=== PATIENT | male | born 1970 | race African-American/Black ===

== ENCOUNTER 2017-06-26 14:18 | Inpatient (IN) ==
[2017-06-26 14:52] LABS: INR 1.2; PT Patient Result 12.8 SECS
[2017-06-26 15:07] LABS: Troponin I Only 0.703 NG/ML (0.00-0.045)
[2017-06-26] MEDS ORDERED: ENOXAPARIN 80 MG/0.8 ML SYRINGE SUBCUT SCH (16:00)
[2017-06-26] MEDS ORDERED: ENOXAPARIN 80 MG/0.8 ML SYRINGE SUBCUT STA (16:00)
[2017-06-26 18:24] LABS: Basophils # 0.1 10*3/uL (0.0-0.2); Basophils % 1.1 % (0.0-0.8); Eosinophils # 0.1 10*3/uL (0.0-0.87); Eosinophils % 0.6 % (0.00-10.9); Hematocrit 44.2 VOL% (42.0-52.0); Hemoglobin 14.5 GM/DL (14.0-18.0); Immature Granulocytes % 0.5 %; Immature Granulocytes Absolute 0.06 #; Lymphocytes # 1.9 10*3/uL (1.4-4.0); Lymphocytes % 16.6 % (21.2-54.2); Mean Corpuscular HGB Conc 32.8 GM/DL (32-36); Mean Corpuscular Hemoglobin 30 PG (27-34); Mean Corpuscular Volume 91.9 FL (87-102); Mean Platelet Volume 10.5 FL (9.6-12.0); Monocytes # 0.5 10*3/uL (0.11-0.8); Monocytes % 4.5 % (1.7-12.7); Neutrophils # 8.6 10*3/uL (1.4-7.4); Neutrophils % 76.7 % (38.7-73.9); Platelet Count 564 T/CUMM (130-400); Red Blood Count 4.81 MC/CUMM (3.8-5.5); Red Cell Distribution Width 13.2 % (9.3-17.3); White Blood Count 11.2 T/CUMM (4-12)
[2017-06-26 18:53] LABS: Risk Ratio 6.64; VLDL CHOLESTEROL 17.8 MG/DL
[2017-06-26 19:01] LABS: Albumin 3.6 G/DL (3.4-5.0); Bilirubin,Direct 0.77 MG/DL (0.0-0.20); Bilirubin,Indirect 3.2 MG/DL (0.0-1.0); Calcium 9.2 MG/DL (8.5-10.1); Ferritin 273.2 ng/ml (26-388); Free T4 (Free Thyroxine) 1.84 NG/DL (0.76-1.46); Magnesium 2.1 MG/DL (1.8-2.4); Osmolality,Calculated 282.4 MOS/KG (273-304); Potassium 4.1 MMOL/L (3.5-5.1); Thyroid Stimulating Hormone 1.77 uIU/ml (0.358-3.74)
[2017-06-26 19:27] LABS: Sedimentation Rate-Westergren 11 MM/HR (0-15)
[2017-06-26] MEDS ORDERED: HYDROcodone/CHLORPHENIRAMINE ER 5 ML UDCUP PO PRN (19:36)
[2017-06-26 19:45] LABS: Hepatitis A Ab IgM Quant 0.11 Index; Hepatitis A Ab IgM Result Negative (Negative); Hepatitis B Core IgM Quant 0.13 Index; Hepatitis B Core IgM Result Negative (Negative); Hepatitis B Surface Ag Quant 0.19 Index; Hepatitis B Surface Ag Result Negative (Negative); Hepatitis C Virus Ab Quant 0.13 Index; Hepatitis C Virus Ab Result Negative (Negative)
[2017-06-26] MEDS: MAGNESIUM OXIDE 400 MG TABLET PO SCH (21:01)
[2017-06-26] MEDS: POTASSIUM CHLORIDE 20 MEQ TABLET PO SCH (21:02)
[2017-06-26] MEDS: CARVEDILOL 3.125 MG TABLET PO SCH (21:02)
[2017-06-26] MEDS: FUROSEMIDE 40 MG/4 ML VIAL IV SCH (21:05)
[2017-06-26] MEDS: ONDANSETRON 4 MG/2 ML VIAL IV PRN (22:22)
[2017-06-27] MEDS: ONDANSETRON 4 MG/2 ML VIAL IV PRN ×2 (05:19→21:41)
[2017-06-27 05:50] LABS: Basophils # 0.1 10*3/uL (0.0-0.2); Basophils % 1.1 % (0.0-0.8); Eosinophils # 0.2 10*3/uL (0.0-0.87); Eosinophils % 1.5 % (0.00-10.9); Hemoglobin 12.8 GM/DL (14.0-18.0); Immature Granulocytes % 0.4 %; Immature Granulocytes Absolute 0.04 #; Lymphocytes # 2.3 10*3/uL (1.4-4.0); Lymphocytes % 22.9 % (21.2-54.2); Mean Corpuscular HGB Conc 32.8 GM/DL (32-36); Mean Corpuscular Hemoglobin 30 PG (27-34); Mean Corpuscular Volume 91.5 FL (87-102); Mean Platelet Volume 10.6 FL (9.6-12.0); Monocytes # 0.6 10*3/uL (0.11-0.8); Monocytes % 6.1 % (1.7-12.7); Neutrophils # 6.8 10*3/uL (1.4-7.4); Platelet Count 511 T/CUMM (130-400); Red Blood Count 4.26 MC/CUMM (3.8-5.5); Red Cell Distribution Width 13.3 % (9.3-17.3); White Blood Count 9.9 T/CUMM (4-12)
[2017-06-27 06:17] LABS: Magnesium 2.2 MG/DL (1.8-2.4); Osmolality,Calculated 286.1 MOS/KG (273-304); Potassium 4.4 MMOL/L (3.5-5.1)
[2017-06-27] MEDS ORDERED: FUROSEMIDE 40 MG/4 ML VIAL IV SCH (08:00)
[2017-06-27] MEDS: FUROSEMIDE 40 MG/4 ML VIAL IV SCH ×2 (08:24→16:08)
[2017-06-27] MEDS: MAGNESIUM OXIDE 400 MG TABLET PO SCH ×2 (08:24→21:43)
[2017-06-27] MEDS: POTASSIUM CHLORIDE 20 MEQ TABLET PO SCH ×2 (08:24→21:43)
[2017-06-27] MEDS: CARVEDILOL 3.125 MG TABLET PO SCH ×2 (08:24→21:43)
[2017-06-27] MEDS: SPIRONOLACTONE 25 MG TABLET PO SCH (08:24)
[2017-06-27] MEDS: ASPIRIN EC 81 MG TABLET PO SCH (08:24)
[2017-06-27] MEDS ORDERED: ASPIRIN CHEW 81 MG TABLET PO SCH (09:00)
[2017-06-27] MEDS: LEVOFLOXACIN INJ 500 MG in PREMIX 1 EACH IV SCH (11:25)
[2017-06-27] MEDS: metroNIDAZOLE INJ 500 MG in PREMIX 1 EACH IV SCH ×2 (12:25→21:44)
[2017-06-27 15:46] LABS: % Iron Saturation 11.2 % (18-50); Ferritin 232.4 ng/ml (26-388); Total Protein 6.1 G/DL (6.4-8.3)
[2017-06-28] MEDS ORDERED: BISACODYL 10 MG SUPP RECTAL PRN (00:15)
[2017-06-28 05:33] LABS: Albumin 2.9 G/DL (3.4-5.0); Bilirubin,Direct 0.68 MG/DL (0.0-0.20); Bilirubin,Total 3.7 MG/DL (0.2-1.0)
[2017-06-28] MEDS: metroNIDAZOLE INJ 500 MG in PREMIX 1 EACH IV SCH ×3 (05:45→21:18)
[2017-06-28 08:07] LABS: Albumin (SPE) 3.5 G/DL (3.2-5.3); Albumin (SPE) Rel % 56.4 %; Alpha 1 (SPE) 0.3 G/DL (0.1-0.4); Alpha 1 (SPE) Rel % 4.5 %; Alpha 2 (SPE) 0.5 G/DL (0.4-1.0); Alpha 2 (SPE) Rel % 8.7 %; Beta (SPE) 0.8 G/DL (0.5-1.1); Beta (SPE) Rel % 13.3 %; Gamma (SPE) Rel % 17.1 %; Total Protein (Chem) 6.1 G/DL (6.4-8.3)
[2017-06-28 08:59] LABS: Basophils # 0.1 10*3/uL (0.0-0.2); Eosinophils # 0.2 10*3/uL (0.0-0.87); Eosinophils % 1.6 % (0.00-10.9); Hematocrit 40.5 VOL% (42.0-52.0); Hemoglobin 13.3 GM/DL (14.0-18.0); Immature Granulocytes % 0.5 %; Immature Granulocytes Absolute 0.05 #; Lymphocytes # 2.1 10*3/uL (1.4-4.0); Lymphocytes % 21.2 % (21.2-54.2); Mean Corpuscular HGB Conc 32.8 GM/DL (32-36); Mean Corpuscular Hemoglobin 30 PG (27-34); Mean Corpuscular Volume 91.4 FL (87-102); Mean Platelet Volume 10.1 FL (9.6-12.0); Monocytes # 0.4 10*3/uL (0.11-0.8); Neutrophils # 7.2 10*3/uL (1.4-7.4); Neutrophils % 71.7 % (38.7-73.9); Platelet Count 491 T/CUMM (130-400); Red Blood Count 4.43 MC/CUMM (3.8-5.5); Red Cell Distribution Width 13.3 % (9.3-17.3); White Blood Count 10.1 T/CUMM (4-12)
[2017-06-28 09:35] LABS: Calcium 8.9 MG/DL (8.5-10.1); Magnesium 2.2 MG/DL (1.8-2.4); Osmolality,Calculated 286.4 MOS/KG (273-304); Potassium 4.5 MMOL/L (3.5-5.1)
[2017-06-28] MEDS: CARVEDILOL 3.125 MG TABLET PO SCH ×2 (10:41→21:17)
[2017-06-28] MEDS: POTASSIUM CHLORIDE 20 MEQ TABLET PO SCH ×2 (10:41→21:17)
[2017-06-28] MEDS: SPIRONOLACTONE 25 MG TABLET PO SCH (10:41)
[2017-06-28] MEDS: ASPIRIN EC 81 MG TABLET PO SCH (10:41)
[2017-06-28] MEDS: MAGNESIUM OXIDE 400 MG TABLET PO SCH ×2 (10:42→21:17)
[2017-06-28] MEDS: FUROSEMIDE 40 MG/4 ML VIAL IV SCH ×2 (10:44→19:46)
[2017-06-28] MEDS: LEVOFLOXACIN INJ 500 MG in PREMIX 1 EACH IV SCH (10:49)
[2017-06-28] MEDS: ONDANSETRON 4 MG/2 ML VIAL IV PRN (15:51)
[2017-06-29 06:32] LABS: Basophils # 0.1 10*3/uL (0.0-0.2); Basophils % 1.1 % (0.0-0.8); Eosinophils # 0.3 10*3/uL (0.0-0.87); Eosinophils % 2.5 % (0.00-10.9); Hemoglobin 13.7 GM/DL (14.0-18.0); Immature Granulocytes % 0.3 %; Immature Granulocytes Absolute 0.03 #; Lymphocytes # 2.7 10*3/uL (1.4-4.0); Lymphocytes % 24.3 % (21.2-54.2); Mean Corpuscular HGB Conc 32.6 GM/DL (32-36); Mean Corpuscular Hemoglobin 30 PG (27-34); Mean Corpuscular Volume 92.3 FL (87-102); Mean Platelet Volume 10.9 FL (9.6-12.0); Monocytes # 0.8 10*3/uL (0.11-0.8); Monocytes % 6.8 % (1.7-12.7); Neutrophils # 7.2 10*3/uL (1.4-7.4); Platelet Count 532 T/CUMM (130-400); Red Blood Count 4.55 MC/CUMM (3.8-5.5); Red Cell Distribution Width 13.3 % (9.3-17.3); White Blood Count 11.1 T/CUMM (4-12)
[2017-06-29] MEDS: metroNIDAZOLE INJ 500 MG in PREMIX 1 EACH IV SCH (06:48)
[2017-06-29 06:56] LABS: Calcium 9.2 MG/DL (8.5-10.1); Magnesium 2.3 MG/DL (1.8-2.4); Osmolality,Calculated 285.4 MOS/KG (273-304); Potassium 4.8 MMOL/L (3.5-5.1)
[2017-06-29 07:00] LABS: Albumin 3.2 G/DL (3.4-5.0); Bilirubin,Direct 0.74 MG/DL (0.0-0.20); Bilirubin,Indirect 3.5 MG/DL (0.0-1.0); Bilirubin,Total 4.2 MG/DL (0.2-1.0); Total Protein 6.5 G/DL (6.4-8.3)
[2017-06-29] MEDS: ASPIRIN EC 81 MG TABLET PO SCH (09:49)
[2017-06-29] MEDS: MAGNESIUM OXIDE 400 MG TABLET PO SCH ×2 (09:49→20:46)
[2017-06-29] MEDS: SPIRONOLACTONE 25 MG TABLET PO SCH (09:49)
[2017-06-29] MEDS: CARVEDILOL 3.125 MG TABLET PO SCH ×2 (09:49→20:46)
[2017-06-29] MEDS: POTASSIUM CHLORIDE 20 MEQ TABLET PO SCH (09:49)
[2017-06-29] MEDS: FUROSEMIDE 40 MG/4 ML VIAL IV SCH ×2 (09:49→15:41)
[2017-06-29] MEDS: LEVOFLOXACIN INJ 500 MG in PREMIX 1 EACH IV SCH (10:55)
[2017-06-29] MEDS: ONDANSETRON 4 MG/2 ML VIAL IV PRN (12:53)
[2017-06-30 05:19] LABS: Basophils # 0.1 10*3/uL (0.0-0.2); Basophils % 1.1 % (0.0-0.8); Eosinophils # 0.5 10*3/uL (0.0-0.87); Eosinophils % 4.3 % (0.00-10.9); Hematocrit 38.6 VOL% (42.0-52.0); Hemoglobin 12.6 GM/DL (14.0-18.0); Immature Granulocytes % 0.5 %; Immature Granulocytes Absolute 0.05 #; Lymphocytes # 2.5 10*3/uL (1.4-4.0); Lymphocytes % 24.1 % (21.2-54.2); Mean Corpuscular HGB Conc 32.6 GM/DL (32-36); Mean Corpuscular Hemoglobin 30 PG (27-34); Mean Corpuscular Volume 92.3 FL (87-102); Mean Platelet Volume 10.5 FL (9.6-12.0); Monocytes # 0.6 10*3/uL (0.11-0.8); Monocytes % 6.1 % (1.7-12.7); Neutrophils # 6.8 10*3/uL (1.4-7.4); Neutrophils % 63.9 % (38.7-73.9); Platelet Count 479 T/CUMM (130-400); Red Blood Count 4.18 MC/CUMM (3.8-5.5); Red Cell Distribution Width 13.3 % (9.3-17.3); White Blood Count 10.6 T/CUMM (4-12)
[2017-06-30 05:45] LABS: Calcium 8.8 MG/DL (8.5-10.1); Magnesium 2.5 MG/DL (1.8-2.4); Osmolality,Calculated 287.3 MOS/KG (273-304); Potassium 4.3 MMOL/L (3.5-5.1)
[2017-06-30] MEDS: MAGNESIUM OXIDE 400 MG TABLET PO SCH ×2 (10:44→21:47)
[2017-06-30] MEDS: ASPIRIN EC 81 MG TABLET PO SCH (10:44)
[2017-06-30] MEDS: SPIRONOLACTONE 25 MG TABLET PO SCH (10:44)
[2017-06-30] MEDS: CARVEDILOL 3.125 MG TABLET PO SCH ×2 (10:44→21:47)
[2017-06-30 12:31] LABS: Smooth Muscle Antibody Negative (Negative)
[2017-06-30] MEDS ORDERED: LIDOCAINE 2% 5 ML VIAL ONE (12:32)
[2017-06-30] MEDS ORDERED: ETOMIDATE 20 MG/10 ML VIAL IV ONE (12:32)
[2017-06-30 13:56] LABS: Mitochondrial Antibody (M2) <0.1 U
[2017-06-30] MEDS: FUROSEMIDE 40 MG/4 ML VIAL IV SCH ×3 (14:14→16:55)
[2017-06-30] MEDS ORDERED: ZALEPLON 5 MG CAPSULE PO PRN (14:47)
[2017-06-30] MEDS ORDERED: ACETAMINOPHEN 325 MG TABLET PO PRN (15:06)
[2017-06-30] MEDS ORDERED: MAGNESIUM HYDROXIDE SUSP 30 ML UDCUP PO PRN (15:07)
[2017-06-30] MEDS ORDERED: DOCUSATE SODIUM 100 MG CAPSULE PO PRN (15:07)
[2017-06-30] MEDS: PANTOPRAZOLE 20 MG TABLET PO SCH ×2 (16:16→16:52)
[2017-07-01 05:41] LABS: Basophils # 0.1 10*3/uL (0.0-0.2); Basophils % 1.3 % (0.0-0.8); Eosinophils # 0.5 10*3/uL (0.0-0.87); Eosinophils % 5.3 % (0.00-10.9); Hematocrit 36.7 VOL% (42.0-52.0); Hemoglobin 12.3 GM/DL (14.0-18.0); Immature Granulocytes % 0.4 %; Immature Granulocytes Absolute 0.04 #; Lymphocytes # 1.9 10*3/uL (1.4-4.0); Lymphocytes % 20.4 % (21.2-54.2); Mean Corpuscular HGB Conc 33.5 GM/DL (32-36); Mean Corpuscular Hemoglobin 31 PG (27-34); Mean Platelet Volume 10.9 FL (9.6-12.0); Monocytes # 0.8 10*3/uL (0.11-0.8); Monocytes % 7.9 % (1.7-12.7); Neutrophils # 6.1 10*3/uL (1.4-7.4); Neutrophils % 64.7 % (38.7-73.9); Platelet Count 413 T/CUMM (130-400); Red Blood Count 3.99 MC/CUMM (3.8-5.5); Red Cell Distribution Width 13.2 % (9.3-17.3); White Blood Count 9.5 T/CUMM (4-12)
[2017-07-01 06:06] LABS: Calcium 8.7 MG/DL (8.5-10.1); Magnesium 2.3 MG/DL (1.8-2.4); Osmolality,Calculated 284.4 MOS/KG (273-304); Potassium 4.3 MMOL/L (3.5-5.1)
[2017-07-01 06:12] LABS: Albumin 2.9 G/DL (3.4-5.0); Bilirubin,Direct 0.63 MG/DL (0.0-0.20); Bilirubin,Indirect 3.6 MG/DL (0.0-1.0); Bilirubin,Total 4.2 MG/DL (0.2-1.0); Total Protein 5.6 G/DL (6.4-8.3)
[2017-07-01] MEDS: SPIRONOLACTONE 25 MG TABLET PO SCH (08:23)
[2017-07-01] MEDS: FUROSEMIDE 40 MG/4 ML VIAL IV SCH ×2 (08:23→15:55)
[2017-07-01] MEDS: ASPIRIN EC 81 MG TABLET PO SCH (08:23)
[2017-07-01] MEDS: CARVEDILOL 3.125 MG TABLET PO SCH ×2 (08:23→21:40)
[2017-07-01] MEDS: PANTOPRAZOLE 20 MG TABLET PO SCH (08:23)
[2017-07-01] MEDS: MAGNESIUM OXIDE 400 MG TABLET PO SCH ×2 (08:27→21:40)
[2017-07-02] MEDS: FUROSEMIDE 40 MG/4 ML VIAL IV SCH ×2 (09:31→16:16)
[2017-07-02] MEDS: MAGNESIUM OXIDE 400 MG TABLET PO SCH ×2 (09:32→18:41)
[2017-07-02] MEDS: PANTOPRAZOLE 20 MG TABLET PO SCH (09:32)
[2017-07-02] MEDS: SPIRONOLACTONE 25 MG TABLET PO SCH (09:32)
[2017-07-02] MEDS: ASPIRIN EC 81 MG TABLET PO SCH (09:32)
[2017-07-02] MEDS: CARVEDILOL 3.125 MG TABLET PO SCH ×2 (09:32→18:41)
[2017-07-02 16:57] VITALS: BP 102/60
== END 2017-07-02 21:16 | disposition home or self-care (01) | DRG 280 ==
LOC: N.ED 14:18 → N.EDINP 15:52 → N.TELES 16:45
PROVIDERS: ADMIT Internal Medicine Cardiovascular Disease; ATTEND Internal Medicine Cardiovascular Disease

== ENCOUNTER 2017-09-26 15:40 | Inpatient (IN) ==
[2017-09-26] MEDS ORDERED: ALBUTEROL/IPRATROPIUM 3 ML NEB RESP TX STA ×2 (17:47→22:34)
[2017-09-26] MEDS ORDERED: FUROSEMIDE 100 MG/10 ML VIAL IV STA (17:47)
[2017-09-26] MEDS ORDERED: cefTRIAXone 1,000 MG in SODIUM CHLORIDE 0.9% 100 ML IV STA (17:47)
[2017-09-26] MEDS ORDERED: ONDANSETRON 4 MG/2 ML VIAL IV STA (17:47)
[2017-09-26 18:44] LABS: Basophils # 0.1 10*3/uL (0.0-0.2); Basophils % 1.3 % (0.0-0.8); Eosinophils # 0.2 10*3/uL (0.0-0.87); Eosinophils % 1.8 % (0.00-10.9); Hematocrit 40.9 VOL% (42.0-52.0); Hemoglobin 13.3 GM/DL (14.0-18.0); Immature Granulocytes % 0.5 %; Immature Granulocytes Absolute 0.05 #; Lymphocytes # 2.1 10*3/uL (1.4-4.0); Lymphocytes % 19.2 % (21.2-54.2); Mean Corpuscular HGB Conc 32.5 GM/DL (32-36); Mean Corpuscular Hemoglobin 31 PG (27-34); Mean Corpuscular Volume 94.5 FL (87-102); Mean Platelet Volume 10.8 FL (9.6-12.0); Monocytes # 0.9 10*3/uL (0.11-0.8); Monocytes % 8.5 % (1.7-12.7); NRBC # 0.03 10*3/uL; Neutrophils # 7.6 10*3/uL (1.4-7.4); Neutrophils % 68.7 % (38.7-73.9); Platelet Count 301 T/CUMM (130-400); Red Blood Count 4.33 MC/CUMM (3.8-5.5)
[2017-09-26 18:51] LABS: INR 1.5; PT Patient Result 15.4 SECS
[2017-09-26 19:12] LABS: Alanine Aminotransferase 92 U/L (16-61); Albumin 3.5 G/DL (3.4-5.0); Alkaline Phosphatase 74 U/L (45-117); Aspartate Amino Transferase 55 U/L (0-37); Blood Urea Nitrogen 24 MG/DL (7-18); Glucose 96 MG/DL (74-106); Magnesium 2.1 MG/DL (1.8-2.4); Osmolality,Calculated 282.4 MOS/KG (273-304); Potassium 3.5 MMOL/L (3.5-5.1); Sodium 140 MMOL/L (136-145); Troponin I Only < 0.015 NG/ML (0.00-0.045)
[2017-09-26] MEDS ORDERED: FUROSEMIDE 40 MG/4 ML VIAL ONE (19:39)
[2017-09-26] MEDS ORDERED: ONDANSETRON 4 MG/2 ML VIAL ONE (19:40)
[2017-09-26] MEDS ORDERED: cefTRIAXone 1,000 MG VIAL ONE (19:40)
[2017-09-26] MEDS ORDERED: FUROSEMIDE 20 MG/2 ML VIAL ONE (19:40)
[2017-09-26 23:47] LABS: Troponin I Only < 0.015 NG/ML (0.00-0.045)
[2017-09-27] MEDS: ENOXAPARIN 40 MG/0.4 ML SYRINGE SUBCUT SCH ×2 (00:14→23:16)
[2017-09-27 00:39] LABS: Hepatitis A Ab IgM Result Negative (Negative); Hepatitis B Core IgM Quant 0.15 Index; Hepatitis B Core IgM Result Negative (Negative); Hepatitis B Surface Ag Quant < 0.10 Index; Hepatitis B Surface Ag Result Negative (Negative); Hepatitis C Virus Ab Quant 0.13 Index; Hepatitis C Virus Ab Result Negative (Negative)
[2017-09-27 04:55] LABS: Basophils # 0.1 10*3/uL (0.0-0.2); Basophils % 1.2 % (0.0-0.8); Eosinophils # 0.1 10*3/uL (0.0-0.87); Eosinophils % 1.1 % (0.00-10.9); Hematocrit 38.8 VOL% (42.0-52.0); Hemoglobin 12.7 GM/DL (14.0-18.0); Immature Granulocytes % 0.5 %; Immature Granulocytes Absolute 0.06 #; Lymphocytes # 1.7 10*3/uL (1.4-4.0); Lymphocytes % 15.5 % (21.2-54.2); Mean Corpuscular HGB Conc 32.7 GM/DL (32-36); Mean Corpuscular Hemoglobin 31 PG (27-34); Mean Corpuscular Volume 93.9 FL (87-102); Mean Platelet Volume 11.3 FL (9.6-12.0); Monocytes # 1.1 10*3/uL (0.11-0.8); Monocytes % 9.9 % (1.7-12.7); NRBC # 0.02 10*3/uL; Neutrophils # 7.9 10*3/uL (1.4-7.4); Neutrophils % 71.8 % (38.7-73.9); Platelet Count 303 T/CUMM (130-400); Red Blood Count 4.13 MC/CUMM (3.8-5.5); Red Cell Distribution Width 15.9 % (9.3-17.3); White Blood Count 10.9 T/CUMM (4-12)
[2017-09-27 05:28] LABS: Troponin I Only < 0.015 NG/ML (0.00-0.045)
[2017-09-27 05:29] LABS: Albumin 3.2 G/DL (3.4-5.0); Bilirubin,Total 7.1 MG/DL (0.2-1.0); Calcium 8.7 MG/DL (8.5-10.1); Osmolality,Calculated 282.4 MOS/KG (273-304); Risk Ratio 7.93; Total Protein 6.6 G/DL (6.4-8.3); VLDL CHOLESTEROL 14.2 MG/DL
[2017-09-27] MEDS ORDERED: ASPIRIN 325 MG TABLET PO SCH (09:00)
[2017-09-27] MEDS: CARVEDILOL 3.125 MG TABLET PO SCH ×2 (09:32→20:26)
[2017-09-27] MEDS: SPIRONOLACTONE 25 MG TABLET PO SCH (09:32)
[2017-09-27] MEDS: FUROSEMIDE 40 MG/4 ML VIAL IV SCH ×2 (09:50→20:27)
[2017-09-27] MEDS: PANTOPRAZOLE 20 MG TABLET PO SCH (10:23)
[2017-09-27] MEDS: LEVOFLOXACIN INJ 500 MG in PREMIX 1 EACH IV SCH (10:24)
[2017-09-27] MEDS: POTASSIUM CHLORIDE 20 MEQ TABLET PO PRN (10:34)
[2017-09-27] MEDS: LISINOPRIL 2.5 MG TABLET PO SCH ×2 (12:04→20:26)
[2017-09-27 13:54] LABS: Apearance,Urine CLEAR (Clear); Bilirubin,Urine Negative (Negative); Blood, Urine Negative (Negative); Glucose,Urine (UA) Negative (Negative); Ketones,Urine Negative (Negative); Nitrite,Urine Negative (Negative); Protein,Urine Negative; RBC,Urine <1 /HPF (0-4); Urine Color Yellow (Yellow); WBC,Urine 1 /HPF (0-6)
[2017-09-27 14:13] LABS: Barbiturates Screen,Urine Negative (Negative); Benzodiazepines Screen,Urine Negative (Negative); Cannabinoid Screen,Urine Negative (Negative); Opiate Screen,Urine Negative (Negative); Phencyclidine Screen,Urine Negative (Negative)
[2017-09-28 05:25] LABS: Basophils # 0.1 10*3/uL (0.0-0.2); Basophils % 0.9 % (0.0-0.8); Eosinophils # 0.3 10*3/uL (0.0-0.87); Eosinophils % 2.8 % (0.00-10.9); Hematocrit 37.9 VOL% (42.0-52.0); Hemoglobin 12.8 GM/DL (14.0-18.0); Immature Granulocytes % 0.2 %; Immature Granulocytes Absolute 0.02 #; Lymphocytes # 2.2 10*3/uL (1.4-4.0); Lymphocytes % 22.3 % (21.2-54.2); Mean Corpuscular HGB Conc 33.8 GM/DL (32-36); Mean Corpuscular Hemoglobin 31 PG (27-34); Mean Corpuscular Volume 91.8 FL (87-102); Mean Platelet Volume 11.1 FL (9.6-12.0); Monocytes # 0.9 10*3/uL (0.11-0.8); Neutrophils # 6.3 10*3/uL (1.4-7.4); Neutrophils % 64.8 % (38.7-73.9); Platelet Count 285 T/CUMM (130-400); Red Blood Count 4.13 MC/CUMM (3.8-5.5); Red Cell Distribution Width 15.7 % (9.3-17.3); White Blood Count 9.7 T/CUMM (4-12)
[2017-09-28 05:55] LABS: Calcium 8.8 MG/DL (8.5-10.1); Magnesium 1.9 MG/DL (1.8-2.4); Potassium 2.8 MMOL/L (3.5-5.1)
[2017-09-28 05:56] LABS: Albumin 3.1 G/DL (3.4-5.0); Calcium 8.8 MG/DL (8.5-10.1); Osmolality,Calculated 276.8 MOS/KG (273-304); Potassium 2.7 MMOL/L (3.5-5.1)
[2017-09-28] MEDS: POTASSIUM CHLORIDE 20 MEQ TABLET PO PRN ×4 (06:05→17:57)
[2017-09-28] MEDS: FUROSEMIDE 40 MG/4 ML VIAL IV SCH ×2 (08:35→20:34)
[2017-09-28] MEDS: PANTOPRAZOLE 20 MG TABLET PO SCH (08:39)
[2017-09-28] MEDS: SPIRONOLACTONE 25 MG TABLET PO SCH (08:41)
[2017-09-28] MEDS: CARVEDILOL 3.125 MG TABLET PO SCH ×2 (08:41→20:33)
[2017-09-28] MEDS: LEVOFLOXACIN INJ 500 MG in PREMIX 1 EACH IV SCH (08:43)
[2017-09-28] MEDS: LISINOPRIL 2.5 MG TABLET PO SCH ×2 (08:51→20:33)
[2017-09-28] MEDS: DOCUSATE SODIUM 100 MG CAPSULE PO SCH ×2 (14:07→20:34)
[2017-09-28] MEDS: POLYETHYLENE GLYCOL POWDER 17 GM PACK PO SCH ×2 (14:08→21:28)
[2017-09-28] MEDS: SENNA 8.6 MG TABLET PO SCH (21:28)
[2017-09-28] MEDS: ENOXAPARIN 40 MG/0.4 ML SYRINGE SUBCUT SCH (21:34)
[2017-09-29 04:58] LABS: Basophils # 0.1 10*3/uL (0.0-0.2); Basophils % 0.9 % (0.0-0.8); Eosinophils # 0.2 10*3/uL (0.0-0.87); Eosinophils % 2.8 % (0.00-10.9); Hematocrit 39.7 VOL% (42.0-52.0); Hemoglobin 12.9 GM/DL (14.0-18.0); Immature Granulocytes % 0.2 %; Immature Granulocytes Absolute 0.02 #; Lymphocytes # 2.3 10*3/uL (1.4-4.0); Lymphocytes % 26.3 % (21.2-54.2); Mean Corpuscular HGB Conc 32.5 GM/DL (32-36); Mean Corpuscular Hemoglobin 31 PG (27-34); Mean Corpuscular Volume 94.1 FL (87-102); Monocytes # 0.6 10*3/uL (0.11-0.8); Neutrophils # 5.4 10*3/uL (1.4-7.4); Neutrophils % 62.8 % (38.7-73.9); Platelet Count 330 T/CUMM (130-400); Red Blood Count 4.22 MC/CUMM (3.8-5.5); Red Cell Distribution Width 15.3 % (9.3-17.3); White Blood Count 8.6 T/CUMM (4-12)
[2017-09-29 05:27] LABS: Calcium 9.2 MG/DL (8.5-10.1); Osmolality,Calculated 270.2 MOS/KG (273-304); Potassium 3.4 MMOL/L (3.5-5.1)
[2017-09-29 05:29] LABS: Albumin 3.5 G/DL (3.4-5.0); Calcium 9.3 MG/DL (8.5-10.1); Osmolality,Calculated 270.2 MOS/KG (273-304); Potassium 3.5 MMOL/L (3.5-5.1)
[2017-09-29] MEDS: POTASSIUM CHLORIDE 20 MEQ TABLET PO SCH (08:57)
[2017-09-29] MEDS: CARVEDILOL 3.125 MG TABLET PO SCH ×2 (08:58→21:04)
[2017-09-29] MEDS: LISINOPRIL 2.5 MG TABLET PO SCH ×2 (08:58→21:04)
[2017-09-29] MEDS: SPIRONOLACTONE 25 MG TABLET PO SCH (08:58)
[2017-09-29] MEDS: DOCUSATE SODIUM 100 MG CAPSULE PO SCH ×2 (08:58→21:04)
[2017-09-29] MEDS: POLYETHYLENE GLYCOL POWDER 17 GM PACK PO SCH ×2 (08:58→21:02)
[2017-09-29] MEDS: PANTOPRAZOLE 20 MG TABLET PO SCH (08:58)
[2017-09-29] MEDS: LEVOFLOXACIN INJ 500 MG in PREMIX 1 EACH IV SCH (08:59)
[2017-09-29] MEDS: FUROSEMIDE 40 MG/4 ML VIAL IV SCH ×2 (08:59→21:05)
[2017-09-29] MEDS: FLUTICASONE 50 MCG NASAL SPRAY 16 GM BOTTLE BOTH NARES SCH (12:41)
[2017-09-29] MEDS: OXYMETAZOLINE 0.05% NASAL SPRAY 15 ML BOTTLE BOTH NARES SCH ×2 (12:41→21:09)
[2017-09-29] MEDS: CETIRIZINE 10 MG TABLET PO SCH (12:41)
[2017-09-29] MEDS: SENNA 8.6 MG TABLET PO SCH (21:04)
[2017-09-30] MEDS: ENOXAPARIN 40 MG/0.4 ML SYRINGE SUBCUT SCH (01:42)
[2017-09-30 06:22] LABS: Basophils # 0.1 10*3/uL (0.0-0.2); Basophils % 1.5 % (0.0-0.8); Eosinophils # 0.3 10*3/uL (0.0-0.87); Eosinophils % 3.4 % (0.00-10.9); Hemoglobin 12.4 GM/DL (14.0-18.0); Immature Granulocytes % 0.4 %; Immature Granulocytes Absolute 0.03 #; Lymphocytes # 1.9 10*3/uL (1.4-4.0); Mean Corpuscular HGB Conc 32.6 GM/DL (32-36); Mean Corpuscular Hemoglobin 30 PG (27-34); Mean Corpuscular Volume 92.2 FL (87-102); Mean Platelet Volume 10.5 FL (9.6-12.0); Monocytes # 0.6 10*3/uL (0.11-0.8); Monocytes % 7.9 % (1.7-12.7); Neutrophils # 4.4 10*3/uL (1.4-7.4); Neutrophils % 60.8 % (38.7-73.9); Platelet Count 310 T/CUMM (130-400); Red Blood Count 4.12 MC/CUMM (3.8-5.5); White Blood Count 7.3 T/CUMM (4-12)
[2017-09-30 07:01] LABS: Calcium 8.9 MG/DL (8.5-10.1); Magnesium 2.1 MG/DL (1.8-2.4); Potassium 3.4 MMOL/L (3.5-5.1)
[2017-09-30] MEDS: OXYMETAZOLINE 0.05% NASAL SPRAY 15 ML BOTTLE BOTH NARES SCH ×2 (09:53→21:28)
[2017-09-30] MEDS: FLUTICASONE 50 MCG NASAL SPRAY 16 GM BOTTLE BOTH NARES SCH (09:53)
[2017-09-30] MEDS: FUROSEMIDE 40 MG/4 ML VIAL IV SCH (09:54)
[2017-09-30] MEDS: DOCUSATE SODIUM 100 MG CAPSULE PO SCH ×2 (09:57→21:28)
[2017-09-30] MEDS: CETIRIZINE 10 MG TABLET PO SCH (09:57)
[2017-09-30] MEDS: CARVEDILOL 3.125 MG TABLET PO SCH ×2 (09:57→21:28)
[2017-09-30] MEDS: PANTOPRAZOLE 20 MG TABLET PO SCH (09:57)
[2017-09-30] MEDS: SPIRONOLACTONE 25 MG TABLET PO SCH (09:57)
[2017-09-30] MEDS: POTASSIUM CHLORIDE 20 MEQ TABLET PO SCH (09:57)
[2017-09-30] MEDS: LISINOPRIL 2.5 MG TABLET PO SCH ×2 (09:57→21:27)
[2017-09-30] MEDS: POLYETHYLENE GLYCOL POWDER 17 GM PACK PO SCH ×2 (09:58→21:27)
[2017-09-30] MEDS: LEVOFLOXACIN INJ 500 MG in PREMIX 1 EACH IV SCH (09:58)
[2017-09-30] MEDS: POTASSIUM CHLORIDE 20 MEQ TABLET PO PRN (11:12)
[2017-09-30] MEDS: FUROSEMIDE 40 MG TABLET PO SCH (15:36)
[2017-10-01] MEDS: ENOXAPARIN 40 MG/0.4 ML SYRINGE SUBCUT SCH (04:46)
[2017-10-01 06:31] LABS: Basophils # 0.1 10*3/uL (0.0-0.2); Basophils % 1.5 % (0.0-0.8); Eosinophils # 0.3 10*3/uL (0.0-0.87); Eosinophils % 3.5 % (0.00-10.9); Hematocrit 38.5 VOL% (42.0-52.0); Hemoglobin 12.7 GM/DL (14.0-18.0); Immature Granulocytes % 0.4 %; Immature Granulocytes Absolute 0.03 #; Lymphocytes # 2.2 10*3/uL (1.4-4.0); Lymphocytes % 29.5 % (21.2-54.2); Mean Corpuscular Hemoglobin 31 PG (27-34); Mean Corpuscular Volume 93.2 FL (87-102); Mean Platelet Volume 10.4 FL (9.6-12.0); Monocytes # 0.5 10*3/uL (0.11-0.8); Neutrophils # 4.3 10*3/uL (1.4-7.4); Neutrophils % 58.1 % (38.7-73.9); Platelet Count 329 T/CUMM (130-400); Red Blood Count 4.13 MC/CUMM (3.8-5.5); Red Cell Distribution Width 14.8 % (9.3-17.3); White Blood Count 7.4 T/CUMM (4-12)
[2017-10-01 06:52] LABS: Calcium 9.1 MG/DL (8.5-10.1); Magnesium 2.2 MG/DL (1.8-2.4); Osmolality,Calculated 273.2 MOS/KG (273-304)
[2017-10-01] MEDS: LISINOPRIL 2.5 MG TABLET PO SCH (09:06)
[2017-10-01] MEDS: SPIRONOLACTONE 25 MG TABLET PO SCH (09:06)
[2017-10-01] MEDS: POTASSIUM CHLORIDE 20 MEQ TABLET PO SCH (09:06)
[2017-10-01] MEDS: FLUTICASONE 50 MCG NASAL SPRAY 16 GM BOTTLE BOTH NARES SCH (09:06)
[2017-10-01] MEDS: OXYMETAZOLINE 0.05% NASAL SPRAY 15 ML BOTTLE BOTH NARES SCH (09:06)
[2017-10-01] MEDS: DOCUSATE SODIUM 100 MG CAPSULE PO SCH (09:06)
[2017-10-01] MEDS: POLYETHYLENE GLYCOL POWDER 17 GM PACK PO SCH (09:06)
[2017-10-01] MEDS: PANTOPRAZOLE 20 MG TABLET PO SCH (09:06)
[2017-10-01] MEDS: CETIRIZINE 10 MG TABLET PO SCH (09:06)
[2017-10-01] MEDS: CARVEDILOL 3.125 MG TABLET PO SCH (09:06)
[2017-10-01] MEDS: FUROSEMIDE 40 MG TABLET PO SCH (09:06)
[2017-10-01] MEDS: LEVOFLOXACIN INJ 500 MG in PREMIX 1 EACH IV SCH (09:17)
[2017-10-01] MEDS ORDERED: CARVEDILOL 3.125 MG TABLET PO SCH (10:25)
[2017-10-01 12:03] VITALS: BP 111/80
[2017-10-01] MEDS ORDERED: CARVEDILOL 6.25 MG TABLET PO SCH (21:00)
== END 2017-10-01 15:12 | disposition home or self-care (01) | DRG 291 ==
LOC: N.ED 15:40 → SUATTDRO 21:11 → N.EDINP 21:11 → N.TELEN 21:33
PROVIDERS: ADMIT Pediatrics; ATTEND Hospitalist

== ENCOUNTER 2017-10-16 20:52 | Inpatient (IN) ==
[2017-10-16 22:34] LABS: Basophils # 0.1 10*3/uL (0.0-0.2); Basophils % 1.1 % (0.0-0.8); Eosinophils # 0.2 10*3/uL (0.0-0.87); Eosinophils % 2.1 % (0.00-10.9); Hematocrit 43.3 VOL% (42.0-52.0); Hemoglobin 13.8 GM/DL (14.0-18.0); Immature Granulocytes % 0.4 %; Immature Granulocytes Absolute 0.04 #; Lymphocytes # 1.6 10*3/uL (1.4-4.0); Lymphocytes % 15.1 % (21.2-54.2); Mean Corpuscular HGB Conc 31.9 GM/DL (32-36); Mean Corpuscular Hemoglobin 31 PG (27-34); Mean Platelet Volume 10.7 FL (9.6-12.0); Monocytes # 0.7 10*3/uL (0.11-0.8); Monocytes % 6.8 % (1.7-12.7); Neutrophils # 7.8 10*3/uL (1.4-7.4); Neutrophils % 74.5 % (38.7-73.9); Platelet Count 313 T/CUMM (130-400); Red Blood Count 4.51 MC/CUMM (3.8-5.5); Red Cell Distribution Width 15.1 % (9.3-17.3); White Blood Count 10.4 T/CUMM (4-12)
[2017-10-17] MEDS ORDERED: FUROSEMIDE 40 MG/4 ML VIAL IV STA (00:02)
[2017-10-17] MEDS ORDERED: FUROSEMIDE 40 MG/4 ML VIAL ONE (00:16)
[2017-10-17 00:41] LABS: Albumin 3.3 G/DL (3.4-5.0); Bilirubin,Total 5.8 MG/DL (0.2-1.0); Osmolality,Calculated 281.5 MOS/KG (273-304); Potassium 3.8 MMOL/L (3.5-5.1); Total Protein 7.3 G/DL (6.4-8.3)
[2017-10-17] MEDS ORDERED: ACETAMINOPHEN 325 MG TABLET PO PRN (03:21)
[2017-10-17] MEDS ORDERED: ONDANSETRON 4 MG/2 ML VIAL IV PRN (03:21)
[2017-10-17] MEDS ORDERED: POLYETHYLENE GLYCOL POWDER 17 GM PACK PO PRN (03:29)
[2017-10-17] MEDS ORDERED: metOLazone 5 MG TABLET PO PRN (03:30)
[2017-10-17] MEDS: LEVOFLOXACIN INJ 750 MG in PREMIX 1 EACH IV SCH (05:38)
[2017-10-17] MEDS: LISINOPRIL 2.5 MG TABLET PO SCH ×2 (08:33→21:05)
[2017-10-17] MEDS: DOCUSATE SODIUM 100 MG CAPSULE PO SCH ×2 (08:33→21:05)
[2017-10-17] MEDS: CARVEDILOL 3.125 MG TABLET PO SCH ×2 (08:33→21:06)
[2017-10-17] MEDS: PANTOPRAZOLE 40 MG TABLET PO SCH (08:33)
[2017-10-17] MEDS: ASPIRIN EC 81 MG TABLET PO SCH (08:33)
[2017-10-17] MEDS: ENOXAPARIN 40 MG/0.4 ML SYRINGE SUBCUT SCH (08:34)
[2017-10-17] MEDS: FUROSEMIDE 40 MG/4 ML VIAL IV SCH ×2 (08:34→16:01)
[2017-10-17] MEDS: MAGNESIUM OXIDE 400 MG TABLET PO SCH ×2 (08:37→21:06)
[2017-10-17] MEDS ORDERED: SPIRONOLACTONE 25 MG TABLET PO SCH (09:00)
[2017-10-18] MEDS: LEVOFLOXACIN INJ 750 MG in PREMIX 1 EACH IV SCH (03:54)
[2017-10-18 04:58] LABS: Basophils # 0.1 10*3/uL (0.0-0.2); Basophils % 0.9 % (0.0-0.8); Eosinophils # 0.2 10*3/uL (0.0-0.87); Eosinophils % 2.5 % (0.00-10.9); Hematocrit 37.4 VOL% (42.0-52.0); Hemoglobin 12.2 GM/DL (14.0-18.0); Immature Granulocytes % 0.2 %; Immature Granulocytes Absolute 0.02 #; Lymphocytes # 1.7 10*3/uL (1.4-4.0); Lymphocytes % 19.7 % (21.2-54.2); Mean Corpuscular HGB Conc 32.6 GM/DL (32-36); Mean Corpuscular Hemoglobin 31 PG (27-34); Mean Corpuscular Volume 94.2 FL (87-102); Mean Platelet Volume 10.7 FL (9.6-12.0); Monocytes # 0.7 10*3/uL (0.11-0.8); Monocytes % 8.3 % (1.7-12.7); Neutrophils # 6.1 10*3/uL (1.4-7.4); Neutrophils % 68.4 % (38.7-73.9); Platelet Count 256 T/CUMM (130-400); Red Blood Count 3.97 MC/CUMM (3.8-5.5); Red Cell Distribution Width 14.9 % (9.3-17.3); White Blood Count 8.8 T/CUMM (4-12)
[2017-10-18 05:24] LABS: Osmolality,Calculated 281.4 MOS/KG (273-304)
[2017-10-18] MEDS ORDERED: diphenhydrAMINE CAP 25 MG CAPSULE PO ONE (06:30)
[2017-10-18] MEDS ORDERED: MAGNESIUM SULF RIDER 2 GM in PREMIX 1 EACH IV PRN (06:30)
[2017-10-18] MEDS ORDERED: POTASSIUM CHLORIDE RIDER 10 MEQ in PREMIX 1 EACH IV PRN (06:30)
[2017-10-18] MEDS ORDERED: DIAZEPAM 5 MG TABLET PO ONE (06:30)
[2017-10-18] MEDS ORDERED: HEPARIN/NACL 0.9% 2 UNITS/ML 0 ML IV ONE (07:02)
[2017-10-18] MEDS: LISINOPRIL 2.5 MG TABLET PO SCH ×2 (08:14→21:31)
[2017-10-18] MEDS: SPIRONOLACTONE 50 MG TABLET PO SCH (08:15)
[2017-10-18] MEDS: ASPIRIN EC 81 MG TABLET PO SCH (08:15)
[2017-10-18] MEDS: DOCUSATE SODIUM 100 MG CAPSULE PO SCH ×2 (08:15→21:31)
[2017-10-18] MEDS: CARVEDILOL 3.125 MG TABLET PO SCH ×2 (08:15→21:31)
[2017-10-18] MEDS: MAGNESIUM OXIDE 400 MG TABLET PO SCH ×2 (08:15→21:31)
[2017-10-18] MEDS: PANTOPRAZOLE 40 MG TABLET PO SCH (08:15)
[2017-10-18] MEDS: ENOXAPARIN 40 MG/0.4 ML SYRINGE SUBCUT SCH (08:15)
[2017-10-18] MEDS ORDERED: LIDOCAINE 1% 20 ML VIAL ONE (09:48)
[2017-10-18] MEDS ORDERED: NITROGLYCERIN DRIP 50 MG/250 ML BOTTLE IV ONE (09:48)
[2017-10-18] MEDS ORDERED: HYDROmorphone 2 MG/1 ML VIAL ONE (09:48)
[2017-10-18] MEDS ORDERED: HEPARIN/NACL 0.9% 2 UNITS/ML 2,000 ML IV ONE (09:48)
[2017-10-18] MEDS ORDERED: VERAPAMIL 5 MG/2 ML VIAL ONE (09:49)
[2017-10-18] MEDS ORDERED: MIDAZOLAM 2 MG/2 ML VIAL ONE (09:49)
[2017-10-18] MEDS ORDERED: ENOXAPARIN 30 MG/0.3 ML SYRINGE ONE (10:21)
[2017-10-18] MEDS ORDERED: SODIUM CHLORIDE 0.9% 1,000 ML IV SCH (11:00)
[2017-10-18] MEDS: FUROSEMIDE 40 MG/4 ML VIAL IV SCH ×3 (11:06→16:37)
[2017-10-18] MEDS: ASCORBIC ACID 500 MG TABLET PO SCH ×2 (13:18→21:31)
[2017-10-18] MEDS: POTASSIUM CHLORIDE 20 MEQ TABLET PO SCH ×2 (13:18→21:32)
[2017-10-18] MEDS: POTASSIUM CHLORIDE 20 MEQ TABLET PO PRN ×2 (16:37→18:45)
[2017-10-19] MEDS: LEVOFLOXACIN INJ 750 MG in PREMIX 1 EACH IV SCH (04:21)
[2017-10-19 04:41] LABS: Basophils # 0.1 10*3/uL (0.0-0.2); Basophils % 1.1 % (0.0-0.8); Eosinophils # 0.1 10*3/uL (0.0-0.87); Eosinophils % 0.7 % (0.00-10.9); Hemoglobin 13.9 GM/DL (14.0-18.0); Immature Granulocytes % 0.5 %; Immature Granulocytes Absolute 0.04 #; Lymphocytes # 1.5 10*3/uL (1.4-4.0); Lymphocytes % 17.8 % (21.2-54.2); Mean Corpuscular HGB Conc 30.9 GM/DL (32-36); Mean Corpuscular Hemoglobin 30 PG (27-34); Monocytes # 0.8 10*3/uL (0.11-0.8); Neutrophils # 5.8 10*3/uL (1.4-7.4); Neutrophils % 69.9 % (38.7-73.9); Platelet Count 245 T/CUMM (130-400); Red Blood Count 4.64 MC/CUMM (3.8-5.5); Red Cell Distribution Width 15.1 % (9.3-17.3); White Blood Count 8.3 T/CUMM (4-12)
[2017-10-19 05:08] LABS: Burr Cells Slight; Hypochromasia 1+; Ovalocytes Slight; Platelet Estimate Adequate
[2017-10-19 05:13] LABS: Calcium 8.8 MG/DL (8.5-10.1); Osmolality,Calculated 280.5 MOS/KG (273-304); Potassium 4.4 MMOL/L (3.5-5.1)
[2017-10-19 08:28] VITALS: BP 98/70
[2017-10-19] MEDS: FUROSEMIDE 40 MG/4 ML VIAL IV SCH (09:22)
[2017-10-19] MEDS: LISINOPRIL 2.5 MG TABLET PO SCH (09:22)
[2017-10-19] MEDS: POTASSIUM CHLORIDE 20 MEQ TABLET PO SCH (09:22)
[2017-10-19] MEDS: MAGNESIUM OXIDE 400 MG TABLET PO SCH (09:22)
[2017-10-19] MEDS: ASPIRIN EC 81 MG TABLET PO SCH (09:23)
[2017-10-19] MEDS: CARVEDILOL 3.125 MG TABLET PO SCH (09:23)
[2017-10-19] MEDS: DOCUSATE SODIUM 100 MG CAPSULE PO SCH (09:23)
[2017-10-19] MEDS: ENOXAPARIN 40 MG/0.4 ML SYRINGE SUBCUT SCH (09:23)
[2017-10-19] MEDS: PANTOPRAZOLE 40 MG TABLET PO SCH (09:23)
[2017-10-19] MEDS: ASCORBIC ACID 500 MG TABLET PO SCH (09:23)
[2017-10-19] MEDS: SPIRONOLACTONE 50 MG TABLET PO SCH (09:23)
== END 2017-10-19 12:35 | disposition home or self-care (01) | DRG 286 ==
LOC: N.ED 20:52 → N.EDINP 10-17 03:22 → N.TELES 10-17 04:06
PROVIDERS: ADMIT Hospitalist; ATTEND Hospitalist

== ENCOUNTER 2017-10-28 14:23 | Inpatient (IN) ==
[2017-10-28 15:19] LABS: Calcium 9.5 MG/DL (8.5-10.1); Osmolality,Calculated 269.5 MOS/KG (273-304); Potassium 4.7 MMOL/L (3.5-5.1)
[2017-10-28 15:32] LABS: Basophils # 0.1 10*3/uL (0.0-0.2); Basophils % 1.3 % (0.0-0.8); Eosinophils # 0.2 10*3/uL (0.0-0.87); Eosinophils % 2.1 % (0.00-10.9); Hematocrit 47.8 VOL% (42.0-52.0); Hemoglobin 15.2 GM/DL (14.0-18.0); Immature Granulocytes % 0.6 %; Immature Granulocytes Absolute 0.05 #; Lymphocytes # 2.1 10*3/uL (1.4-4.0); Lymphocytes % 23.9 % (21.2-54.2); Mean Corpuscular HGB Conc 31.8 GM/DL (32-36); Mean Corpuscular Hemoglobin 31 PG (27-34); Mean Corpuscular Volume 96.4 FL (87-102); Mean Platelet Volume 10.9 FL (9.6-12.0); Monocytes # 0.5 10*3/uL (0.11-0.8); Monocytes % 5.7 % (1.7-12.7); Neutrophils # 5.7 10*3/uL (1.4-7.4); Neutrophils % 66.4 % (38.7-73.9); Platelet Count 237 T/CUMM (130-400); Red Blood Count 4.96 MC/CUMM (3.8-5.5); Red Cell Distribution Width 14.8 % (9.3-17.3); White Blood Count 8.6 T/CUMM (4-12)
[2017-10-28] MEDS ORDERED: MAGNESIUM SULF RIDER 2 GM in PREMIX 1 EACH IV PRN (16:06)
[2017-10-28] MEDS ORDERED: ACETAMINOPHEN 325 MG TABLET PO PRN (16:06)
[2017-10-28] MEDS ORDERED: ONDANSETRON 4 MG/2 ML VIAL IV PRN (16:06)
[2017-10-28] MEDS ORDERED: DOCUSATE SODIUM 100 MG CAPSULE PO PRN (16:06)
[2017-10-28] MEDS ORDERED: MAGNESIUM SULF RIDER 4 GM in PREMIX 1 EACH IV PRN (16:06)
[2017-10-28] MEDS ORDERED: POLYETHYLENE GLYCOL POWDER 17 GM PACK PO PRN (16:16)
[2017-10-28] MEDS ORDERED: metOLazone 5 MG TABLET PO SCH (18:00)
[2017-10-28] MEDS: DOBUTamine 500 MG/250 ML PREMIX IV SCH (18:23)
[2017-10-28] MEDS: FUROSEMIDE INJ 100 MG in SODIUM CHLORIDE 0.9% 90 ML IV SCH (18:43)
[2017-10-28] MEDS: DOCUSATE SODIUM 100 MG CAPSULE PO SCH (20:59)
[2017-10-28] MEDS: MAGNESIUM OXIDE 400 MG TABLET PO SCH (21:07)
[2017-10-28] MEDS: POTASSIUM CHLORIDE 20 MEQ TABLET PO SCH (21:07)
[2017-10-28] MEDS: LISINOPRIL 2.5 MG TABLET PO SCH (21:07)
[2017-10-28] MEDS: ENOXAPARIN 30 MG/0.3 ML SYRINGE SUBCUT SCH (21:08)
[2017-10-28] MEDS: ASCORBIC ACID 500 MG TABLET PO SCH (21:08)
[2017-10-29 06:12] LABS: Basophils # 0.1 10*3/uL (0.0-0.2); Basophils % 1.2 % (0.0-0.8); Eosinophils # 0.2 10*3/uL (0.0-0.87); Eosinophils % 2.1 % (0.00-10.9); Hematocrit 40.5 VOL% (42.0-52.0); Hemoglobin 14.1 GM/DL (14.0-18.0); Immature Granulocytes % 0.2 %; Immature Granulocytes Absolute 0.02 #; Lymphocytes # 2.3 10*3/uL (1.4-4.0); Lymphocytes % 21.3 % (21.2-54.2); Mean Corpuscular HGB Conc 34.8 GM/DL (32-36); Mean Corpuscular Hemoglobin 31 PG (27-34); Mean Platelet Volume 10.7 FL (9.6-12.0); Monocytes # 1.1 10*3/uL (0.11-0.8); NRBC # 0.02 10*3/uL; Neutrophils % 65.2 % (38.7-73.9); Platelet Count 246 T/CUMM (130-400); Red Cell Distribution Width 14.6 % (9.3-17.3); White Blood Count 10.8 T/CUMM (4-12)
[2017-10-29 06:30] LABS: Calcium 9.5 MG/DL (8.5-10.1); Osmolality,Calculated 268.7 MOS/KG (273-304); Potassium 4.3 MMOL/L (3.5-5.1)
[2017-10-29 06:33] LABS: Albumin 3.4 G/DL (3.4-5.0); Bilirubin,Direct 1.88 MG/DL (0.0-0.20); Bilirubin,Indirect 4.8 MG/DL (0.0-1.0); Bilirubin,Total 6.7 MG/DL (0.2-1.0); Total Protein 7.5 G/DL (6.4-8.3)
[2017-10-29] MEDS: ASPIRIN EC 81 MG TABLET PO SCH (08:43)
[2017-10-29] MEDS: MAGNESIUM OXIDE 400 MG TABLET PO SCH ×3 (08:43→20:38)
[2017-10-29] MEDS: PANTOPRAZOLE 40 MG TABLET PO SCH (08:43)
[2017-10-29] MEDS: POTASSIUM CHLORIDE 20 MEQ TABLET PO SCH ×2 (08:43→20:38)
[2017-10-29] MEDS: ASCORBIC ACID 500 MG TABLET PO SCH ×2 (08:43→20:38)
[2017-10-29] MEDS: LISINOPRIL 2.5 MG TABLET PO SCH ×2 (08:43→20:39)
[2017-10-29] MEDS ORDERED: ALBUTEROL 0.63 MG/3 ML NEB RESP TX PRN (09:02)
[2017-10-29 09:07] LABS: INR 1.5; PT Patient Result 15.3 SECS
[2017-10-29] MEDS: DOCUSATE SODIUM 100 MG CAPSULE PO SCH ×2 (09:17→21:04)
[2017-10-29] MEDS: CYCLOBENZAPRINE 10 MG TABLET PO PRN ×2 (14:16→20:38)
[2017-10-29] MEDS: CALCIUM CARBONATE CHEW 500 MG TABLET PO SCH ×2 (14:16→20:38)
[2017-10-29] MEDS: FUROSEMIDE INJ 100 MG in SODIUM CHLORIDE 0.9% 90 ML IV SCH (15:45)
[2017-10-29] MEDS: DOBUTamine 500 MG/250 ML PREMIX IV SCH (18:17)
[2017-10-29] MEDS: ENOXAPARIN 30 MG/0.3 ML SYRINGE SUBCUT SCH (20:39)
[2017-10-30] MEDS: CYCLOBENZAPRINE 10 MG TABLET PO PRN ×2 (02:44→21:19)
[2017-10-30] MEDS ORDERED: CYCLOBENZAPRINE 10 MG TABLET PO ONE (05:00)
[2017-10-30 05:51] LABS: Basophils # 0.1 10*3/uL (0.0-0.2); Basophils % 1.1 % (0.0-0.8); Eosinophils # 0.2 10*3/uL (0.0-0.87); Eosinophils % 2.2 % (0.00-10.9); Hematocrit 45.7 VOL% (42.0-52.0); Immature Granulocytes % 0.3 %; Immature Granulocytes Absolute 0.03 #; Lymphocytes # 2.4 10*3/uL (1.4-4.0); Lymphocytes % 24.2 % (21.2-54.2); Mean Corpuscular Hemoglobin 31 PG (27-34); Mean Corpuscular Volume 89.8 FL (87-102); Mean Platelet Volume 10.9 FL (9.6-12.0); Monocytes # 0.9 10*3/uL (0.11-0.8); Neutrophils # 6.3 10*3/uL (1.4-7.4); Neutrophils % 63.2 % (38.7-73.9); Platelet Count 289 T/CUMM (130-400); Red Blood Count 5.09 MC/CUMM (3.8-5.5); Red Cell Distribution Width 14.5 % (9.3-17.3)
[2017-10-30 06:04] LABS: Calcium 10.1 MG/DL (8.5-10.1); Osmolality,Calculated 266.8 MOS/KG (273-304); Potassium 4.4 MMOL/L (3.5-5.1)
[2017-10-30] MEDS: POTASSIUM CHLORIDE 20 MEQ TABLET PO SCH ×2 (08:33→21:08)
[2017-10-30] MEDS: CALCIUM CARBONATE CHEW 500 MG TABLET PO SCH ×2 (08:33→21:08)
[2017-10-30] MEDS: PANTOPRAZOLE 40 MG TABLET PO SCH (08:33)
[2017-10-30] MEDS: ASPIRIN EC 81 MG TABLET PO SCH (08:33)
[2017-10-30] MEDS: CARVEDILOL 3.125 MG TABLET PO SCH ×2 (08:33→21:09)
[2017-10-30] MEDS: MAGNESIUM OXIDE 400 MG TABLET PO SCH ×3 (08:33→21:08)
[2017-10-30] MEDS: LISINOPRIL 2.5 MG TABLET PO SCH ×2 (08:33→21:08)
[2017-10-30] MEDS: ASCORBIC ACID 500 MG TABLET PO SCH ×2 (08:34→21:08)
[2017-10-30] MEDS: DOCUSATE SODIUM 100 MG CAPSULE PO SCH ×2 (08:34→21:08)
[2017-10-30] MEDS: FUROSEMIDE 40 MG TABLET PO SCH ×2 (08:34→16:27)
[2017-10-30] MEDS: SPIRONOLACTONE 50 MG TABLET PO SCH (08:34)
[2017-10-30] MEDS: ENOXAPARIN 30 MG/0.3 ML SYRINGE SUBCUT SCH (21:07)
[2017-10-30] MEDS: ZALEPLON 5 MG CAPSULE PO PRN (21:08)
[2017-10-31 04:52] LABS: Basophils # 0.1 10*3/uL (0.0-0.2); Basophils % 0.9 % (0.0-0.8); Eosinophils # 0.2 10*3/uL (0.0-0.87); Eosinophils % 2.6 % (0.00-10.9); Hematocrit 45.4 VOL% (42.0-52.0); Hemoglobin 15.5 GM/DL (14.0-18.0); Immature Granulocytes % 0.6 %; Immature Granulocytes Absolute 0.05 #; Lymphocytes % 22.8 % (21.2-54.2); Mean Corpuscular HGB Conc 34.1 GM/DL (32-36); Mean Corpuscular Hemoglobin 31 PG (27-34); Mean Corpuscular Volume 90.1 FL (87-102); Mean Platelet Volume 10.5 FL (9.6-12.0); Monocytes # 0.8 10*3/uL (0.11-0.8); Monocytes % 8.4 % (1.7-12.7); Neutrophils # 5.8 10*3/uL (1.4-7.4); Neutrophils % 64.7 % (38.7-73.9); Platelet Count 313 T/CUMM (130-400); Red Blood Count 5.04 MC/CUMM (3.8-5.5); Red Cell Distribution Width 14.6 % (9.3-17.3); White Blood Count 8.9 T/CUMM (4-12)
[2017-10-31 05:22] LABS: Calcium 10.2 MG/DL (8.5-10.1); Osmolality,Calculated 266.8 MOS/KG (273-304); Potassium 4.5 MMOL/L (3.5-5.1)
[2017-10-31] MEDS: CARVEDILOL 3.125 MG TABLET PO SCH ×2 (09:04→20:32)
[2017-10-31] MEDS: FUROSEMIDE 40 MG TABLET PO SCH ×2 (09:05→17:13)
[2017-10-31] MEDS: PANTOPRAZOLE 40 MG TABLET PO SCH (09:05)
[2017-10-31] MEDS: CALCIUM CARBONATE CHEW 500 MG TABLET PO SCH ×2 (09:05→20:32)
[2017-10-31] MEDS: MAGNESIUM OXIDE 400 MG TABLET PO SCH ×3 (09:06→20:34)
[2017-10-31] MEDS: ASCORBIC ACID 500 MG TABLET PO SCH ×2 (09:06→20:32)
[2017-10-31] MEDS: DOCUSATE SODIUM 100 MG CAPSULE PO SCH ×2 (09:06→20:33)
[2017-10-31] MEDS: SPIRONOLACTONE 50 MG TABLET PO SCH (09:06)
[2017-10-31] MEDS: POTASSIUM CHLORIDE 20 MEQ TABLET PO SCH ×2 (09:06→20:32)
[2017-10-31] MEDS: ASPIRIN EC 81 MG TABLET PO SCH (09:06)
[2017-10-31] MEDS: LISINOPRIL 2.5 MG TABLET PO SCH ×2 (09:27→20:33)
[2017-10-31] MEDS: DIGOXIN 0.125 MG TABLET PO SCH (14:03)
[2017-10-31] MEDS: DIGOXIN 0.5 MG/2 ML AMP IV SCH ×2 (14:03→19:05)
[2017-10-31] MEDS: CYCLOBENZAPRINE 10 MG TABLET PO PRN (20:33)
[2017-10-31] MEDS: ENOXAPARIN 30 MG/0.3 ML SYRINGE SUBCUT SCH (20:33)
[2017-10-31] MEDS: ZALEPLON 5 MG CAPSULE PO PRN (20:33)
[2017-11-01] MEDS: DIGOXIN 0.5 MG/2 ML AMP IV SCH ×2 (01:31→06:43)
[2017-11-01 05:15] LABS: Basophils # 0.1 10*3/uL (0.0-0.2); Basophils % 1.5 % (0.0-0.8); Eosinophils # 0.3 10*3/uL (0.0-0.87); Eosinophils % 3.7 % (0.00-10.9); Hematocrit 44.5 VOL% (42.0-52.0); Hemoglobin 15.4 GM/DL (14.0-18.0); Immature Granulocytes % 0.7 %; Immature Granulocytes Absolute 0.06 #; Lymphocytes # 1.7 10*3/uL (1.4-4.0); Lymphocytes % 21.1 % (21.2-54.2); Mean Corpuscular HGB Conc 34.6 GM/DL (32-36); Mean Corpuscular Hemoglobin 31 PG (27-34); Mean Corpuscular Volume 90.3 FL (87-102); Mean Platelet Volume 10.4 FL (9.6-12.0); Monocytes # 0.8 10*3/uL (0.11-0.8); Monocytes % 9.3 % (1.7-12.7); Neutrophils # 5.2 10*3/uL (1.4-7.4); Neutrophils % 63.7 % (38.7-73.9); Platelet Count 303 T/CUMM (130-400); Red Blood Count 4.93 MC/CUMM (3.8-5.5); Red Cell Distribution Width 14.1 % (9.3-17.3); White Blood Count 8.2 T/CUMM (4-12)
[2017-11-01 05:36] LABS: Calcium 9.7 MG/DL (8.5-10.1); Osmolality,Calculated 262.2 MOS/KG (273-304); Potassium 5.2 MMOL/L (3.5-5.1)
[2017-11-01] MEDS: ASCORBIC ACID 500 MG TABLET PO SCH ×2 (08:20→22:04)
[2017-11-01] MEDS: CALCIUM CARBONATE CHEW 500 MG TABLET PO SCH ×2 (08:20→22:04)
[2017-11-01] MEDS: PANTOPRAZOLE 40 MG TABLET PO SCH (08:20)
[2017-11-01] MEDS: ASPIRIN EC 81 MG TABLET PO SCH (08:21)
[2017-11-01] MEDS: SPIRONOLACTONE 50 MG TABLET PO SCH (08:21)
[2017-11-01] MEDS: LISINOPRIL 2.5 MG TABLET PO SCH ×2 (08:21→22:09)
[2017-11-01] MEDS: DOCUSATE SODIUM 100 MG CAPSULE PO SCH ×2 (08:21→22:05)
[2017-11-01] MEDS: MAGNESIUM OXIDE 400 MG TABLET PO SCH ×3 (08:21→22:04)
[2017-11-01] MEDS: FUROSEMIDE 40 MG TABLET PO SCH ×2 (08:22→15:01)
[2017-11-01] MEDS: POTASSIUM CHLORIDE 20 MEQ TABLET PO SCH ×2 (08:22→22:09)
[2017-11-01] MEDS: CARVEDILOL 3.125 MG TABLET PO SCH ×2 (08:22→22:05)
[2017-11-01] MEDS ORDERED: diphenhydrAMINE CAP 25 MG CAPSULE PO PRN (14:36)
[2017-11-01] MEDS ORDERED: MAGNESIUM HYDROXIDE SUSP 30 ML UDCUP PO PRN (14:37)
[2017-11-01] MEDS: DIGOXIN 0.125 MG TABLET PO SCH (15:00)
[2017-11-01] MEDS: ENOXAPARIN 30 MG/0.3 ML SYRINGE SUBCUT SCH (22:04)
[2017-11-02 04:05] LABS: Basophils # 0.1 10*3/uL (0.0-0.2); Basophils % 1.6 % (0.0-0.8); Eosinophils # 0.3 10*3/uL (0.0-0.87); Eosinophils % 3.8 % (0.00-10.9); Hematocrit 46.7 VOL% (42.0-52.0); Hemoglobin 15.3 GM/DL (14.0-18.0); Immature Granulocytes % 0.7 %; Immature Granulocytes Absolute 0.06 #; Lymphocytes # 1.4 10*3/uL (1.4-4.0); Lymphocytes % 15.6 % (21.2-54.2); Mean Corpuscular HGB Conc 32.8 GM/DL (32-36); Mean Corpuscular Hemoglobin 30 PG (27-34); Mean Corpuscular Volume 92.7 FL (87-102); Mean Platelet Volume 10.1 FL (9.6-12.0); Monocytes % 11.1 % (1.7-12.7); Neutrophils # 5.8 10*3/uL (1.4-7.4); Neutrophils % 67.2 % (38.7-73.9); Platelet Count 314 T/CUMM (130-400); Red Blood Count 5.04 MC/CUMM (3.8-5.5); Red Cell Distribution Width 13.9 % (9.3-17.3); White Blood Count 8.6 T/CUMM (4-12)
[2017-11-02 04:43] LABS: Osmolality,Calculated 261.2 MOS/KG (273-304); Potassium 4.9 MMOL/L (3.5-5.1)
[2017-11-02] MEDS: CARVEDILOL 3.125 MG TABLET PO SCH (09:14)
[2017-11-02] MEDS: POTASSIUM CHLORIDE 20 MEQ TABLET PO SCH (09:15)
[2017-11-02] MEDS: ASCORBIC ACID 500 MG TABLET PO SCH (09:15)
[2017-11-02] MEDS: MAGNESIUM OXIDE 400 MG TABLET PO SCH (09:15)
[2017-11-02] MEDS: PANTOPRAZOLE 40 MG TABLET PO SCH (09:15)
[2017-11-02] MEDS: FUROSEMIDE 40 MG TABLET PO SCH (09:15)
[2017-11-02] MEDS: SPIRONOLACTONE 50 MG TABLET PO SCH (09:15)
[2017-11-02] MEDS: ASPIRIN EC 81 MG TABLET PO SCH (09:15)
[2017-11-02] MEDS: DOCUSATE SODIUM 100 MG CAPSULE PO SCH (09:15)
[2017-11-02] MEDS: LISINOPRIL 2.5 MG TABLET PO SCH (09:15)
[2017-11-02] MEDS: CALCIUM CARBONATE CHEW 500 MG TABLET PO SCH (09:15)
[2017-11-02] MEDS: DIGOXIN 0.125 MG TABLET PO SCH (12:27)
[2017-11-02 16:13] VITALS: BP 94/63
== END 2017-11-02 15:56 | disposition home or self-care (01) | DRG 291 ==
LOC: EDBD → EDUNIT# → N.ED 14:23 → N.EDINP 17:31 → N.ICU 17:34 → N.TELES 10-30 11:59
PROVIDERS: ADMIT Internal Medicine Cardiovascular Disease; ATTEND Internal Medicine Cardiovascular Disease